=== PATIENT | male | born 1995 | race Caucasian/White ===

== ENCOUNTER 2018-01-16 04:44 | Emergency (ER) | payer BC, OTHER ==
[2018-01-16] MEDS: LORAZEPAM 0.5 MG TAB PO (06:33)
== END 2018-01-16 07:27 | disposition home or self-care (01) ==
LOC: FTE 04:44
DX: F41.9 Anxiety disorder, unspecified (principal); R07.89 Other chest pain; J45.909 Unspecified asthma, uncomplicated
CPT/HCPCS: 71045; 93005; 99284-25